=== PATIENT | male | born 1970 | race Caucasian/White ===

== ENCOUNTER 2023-09-17 14:41 | Inpatient (IN) | payer OTHER, SELFPAY ==
[2023-09-17 15:37] LABS: #Basophils 0.05 10x3/uL (0.0-0.2); %Basophils 0.5 % (0.0-1.0); %Eosinophils 2.2 % (0.0-10.0); %Lymphocytes 27.8 % (21.0-51.0); %Monocytes 6.2 % (0.0-10.0); %Neutrophils 63.1 % (42.0-75.0); Hematocrit 42.2 % (42.0-52.0); Hemoglobin 14.7 g/dL (14.0-18.0); Mean Corpuscular HGB CONC 34.8 g/dL (32.0-36.0); Mean Corpuscular Hemoglobin 32.5 pg (27.0-31.0); Mean Corpuscular Volume 93.2 fL (78.0-98.0); Mean Platelet Volume 9.5 fL (7.4-10.4); Platelet Count 236 10x3/uL (130-400); RBC Distribution Width 13.7 % (11.5-14.5); Red Blood Cell (RBC) Count 4.53 mill/uL (4.70-6.10)
[2023-09-17 15:48] LABS: ALT (SGPT) 53 U/L (8-55); AST (SGOT) 24 U/L (5-34); Albumin 3.6 g/dL (3.5-5.0); Alkaline Phosphatase 90 U/L (40-110); Anion Gap 12 mmol/L (10-20); BUN (Urea Nitrogen) 12 mg/dL (8.4-25.7); Bilirubin, Total 0.6 mg/dL (0.2-1.2); Calc. Creatinine Clearance 0 mL/min (70-130); Calcium 9.3 mg/dL (7.8-10.44); Carbon Dioxide 25 mmol/L (22-29); Chloride 109 mmol/L (98-107); Estimated GFR 89; Globulin 2.9 g/dL (2.4-3.5); Glucose 79 mg/dL (70-105); Potassium 3.7 mmol/L (3.5-5.1); Protein, Total 6.5 g/dL (6.0-8.3); Sodium 142 mmol/L (136-145)
[2023-09-17] MEDS ORDERED: Acetaminophen 650 MG Suppository PR PRN (18:29)
[2023-09-17] MEDS ORDERED: Ipratropium/Albuterol 3 ML NEB NEB PRN (18:31)
[2023-09-17 21:01] LABS: Troponin I 0.018 ng/mL (< 0.028)
[2023-09-17] MEDS ORDERED: Ipratropium/Albuterol 3 ML NEB ONE (22:58)
[2023-09-17] MEDS: Ipratropium/Albuterol 3 ML NEB NEB SCH (23:01)
[2023-09-17] MEDS ORDERED: Acetaminophen 325 MG TAB ONE (23:11)
[2023-09-17] MEDS ORDERED: Furosemide 20 MG (2 mL) VIAL ONE (23:11)
[2023-09-17] MEDS ORDERED: Famotidine 20 MG TAB ONE (23:12)
[2023-09-17] MEDS: Furosemide 20 MG (2 mL) VIAL SLOW IVP SCH (23:15)
[2023-09-17] MEDS: Famotidine 20 MG TAB PO SCH (23:15)
[2023-09-17] MEDS: Acetaminophen 325 MG TAB PO SCH (23:15)
[2023-09-18 00:50] LABS: Troponin I 0.025 ng/mL (< 0.028)
[2023-09-18 04:57] LABS: Amphetamine Detected (NotDetected); Barbiturates Screen Not Detected (NotDetected); Benzodiazepine Screen Not Detected (NotDetected); Cocaine Metabolite Screen Not Detected (NotDetected); Methadone Not Detected (NotDetected); Methamphetamine Detected (NotDetected); Opiate Screen Not Detected (NotDetected); Oxycodone Screen Not Detected (NotDetected); Phencyclidine (PCP) Not Detected (NotDetected); THC/Cannabinoid Screen Detected (NotDetected); Tricyclic Screen Not Detected (NotDetected)
[2023-09-18 05:24] LABS: #Basophils 0.07 10x3/uL (0.0-0.2); %Basophils 0.8 % (0.0-1.0); %Eosinophils 3.5 % (0.0-10.0); %Lymphocytes 47.1 % (21.0-51.0); %Monocytes 5.7 % (0.0-10.0); %Neutrophils 42.8 % (42.0-75.0); Hemoglobin 14.4 g/dL (14.0-18.0); Mean Corpuscular HGB CONC 34.3 g/dL (32.0-36.0); Mean Corpuscular Volume 90.5 fL (78.0-98.0); Mean Platelet Volume 9.8 fL (7.4-10.4); Platelet Count 271 10x3/uL (130-400); RBC Distribution Width 13.6 % (11.5-14.5); Red Blood Cell (RBC) Count 4.64 mill/uL (4.70-6.10)
[2023-09-18 05:45] LABS: Anion Gap 15 mmol/L (10-20); BUN (Urea Nitrogen) 16 mg/dL (8.4-25.7); Calc. Creatinine Clearance 81 mL/min (70-130); Calcium 9.2 mg/dL (7.8-10.44); Carbon Dioxide 23 mmol/L (22-29); Cardiac Risk 2.5 (Less than 4.5); Chloride 109 mmol/L (98-107); Cholesterol 120 mg/dl (< 200 Desired); Estimated GFR 86; Glucose 105 mg/dL (70-105); HDL Cholesterol 48 mg/dL (>60 Neg Risk); LDL Cholesterol, Calculated 57 mg/dL; Potassium 3.5 mmol/L (3.5-5.1); Sodium 143 mmol/L (136-145); Triglycerides 76 mg/dL (Less than 150)
[2023-09-18 05:53] LABS: Hemoglobin A1c 5.6 % (4.0-6.0)
[2023-09-18] MEDS ORDERED: Acetaminophen 325 MG TAB ONE ×2 (05:59→11:07)
[2023-09-18] MEDS: Acetaminophen 325 MG TAB PO PRN (06:08)
[2023-09-18] MEDS ORDERED: Famotidine 20 MG TAB ONE (10:14)
[2023-09-18] MEDS ORDERED: Enoxaparin 40 MG (0.4 mL) SYRINGE ONE (10:18)
[2023-09-18] MEDS: Enoxaparin 40 MG (0.4 mL) SYRINGE SC SCH (11:12)
[2023-09-18] MEDS ORDERED: Nitroglycerin 0.4 MG TAB 1 EACH ONE (11:16)
[2023-09-18] MEDS: Nitroglycerin 0.4 MG TAB (25 Tab Bottle) SL PRN (11:19)
[2023-09-18 12:00] LABS: Influenza A by NAA Not Detected (NotDetected); Influenza B by NAA Not Detected (NotDetected); SARS-CoV-2 NAA Rapid Test Not Detected (NotDetected)
[2023-09-18 13:28] VITALS: BMI 23.3
[2023-09-18] MEDS: Magnesium Sulfate In Water 4 GM in Premix 1 BAG IVPB SCH (17:22)
[2023-09-18] MEDS: Spironolactone 25 MG TAB PO SCH (17:24)
[2023-09-18] MEDS: Furosemide 20 MG (2 mL) VIAL SLOW IVP SCH (17:24)
[2023-09-18] MEDS: Potassium Chloride 20 MEQ TAB PO SCH (17:24)
[2023-09-18] MEDS: Lisinopril 5 MG TAB PO SCH (21:27)
[2023-09-19 05:13] LABS: Anion Gap 15 mmol/L (10-20); BUN (Urea Nitrogen) 16 mg/dL (8.4-25.7); Calc. Creatinine Clearance 65 mL/min (70-130); Calcium 8.5 mg/dL (7.8-10.44); Carbon Dioxide 25 mmol/L (22-29); Chloride 107 mmol/L (98-107); Estimated GFR 67; Glucose 100 mg/dL (70-105); Potassium 3.9 mmol/L (3.5-5.1); Sodium 143 mmol/L (136-145)
[2023-09-19] MEDS: Furosemide 20 MG (2 mL) VIAL SLOW IVP SCH (07:27)
[2023-09-19] MEDS: Spironolactone 25 MG TAB PO SCH (08:25)
[2023-09-19] MEDS: Potassium Chloride 20 MEQ TAB PO SCH (11:32)
[2023-09-19] MEDS: Aspirin/APAP/Caffeine Tab (Excedrin Migraine) PO PRN (11:32)
[2023-09-19] MEDS: Carvedilol 6.25 MG TAB PO SCH (16:59)
[2023-09-19] MEDS ORDERED: Carvedilol 6.25 MG TAB PO SCH (17:00)
[2023-09-19] MEDS: Lisinopril 5 MG TAB PO SCH (20:21)
[2023-09-20 04:07] LABS: Anion Gap 17 mmol/L (10-20); BUN (Urea Nitrogen) 22 mg/dL (8.4-25.7); Calc. Creatinine Clearance 64 mL/min (70-130); Calcium 8.6 mg/dL (7.8-10.44); Carbon Dioxide 24 mmol/L (22-29); Chloride 106 mmol/L (98-107); Estimated GFR 66; Glucose 94 mg/dL (70-105); Potassium 4.4 mmol/L (3.5-5.1); Sodium 143 mmol/L (136-145)
[2023-09-20] MEDS: Furosemide 20 MG TAB PO SCH (08:49)
[2023-09-20 11:37] VITALS: BP 115/75; TEMP 98.1
== END 2023-09-20 15:21 | disposition home or self-care (01) | DRG 291 ==
LOC: ERS 14:41 → ERHOLD 18:38 → 2SW 09-18 13:19 → OBSVTOIN 09-19 14:36
PROVIDERS: ADMIT Student in an Organized Health Care Education/Training Program; ATTEND Internal Medicine
DX: I11.0 Hypertensive heart disease with heart failure (principal); I50.23 Acute on chronic systolic (congestive) heart failure; F15.10 Other stimulant abuse, uncomplicated; I25.10 Atherosclerotic heart disease of native coronary artery without angina pectoris; F17.210 Nicotine dependence, cigarettes, uncomplicated; R91.1 Solitary pulmonary nodule; G47.33 Obstructive sleep apnea (adult) (pediatric); E78.5 Hyperlipidemia, unspecified; I34.0 Nonrheumatic mitral (valve) insufficiency; F12.90 Cannabis use, unspecified, uncomplicated; Z53.29 Procedure and treatment not carried out because of patient's decision for other reasons; Z71.51 Drug abuse counseling and surveillance of drug abuser
CPT/HCPCS: 36415; 71045; 80048; 80053; 80061; 80306; 83036; 83735; 83880; 84443; 84484; 85025; 93005; 93306; 94640; 96375; 96376; 97139; G0378; J1650; J1940; J3475; J7620